=== PATIENT | male | born 1950 | race Caucasian/White ===

== ENCOUNTER → 2016-12-04 | Outpatient (CLI) | payer MEDICARE, BC ==
--- NOTE | ~2016-12-04 | ESTC ---
Cardiac Perfusion Imaging Demographics Patient Name MILENA Reynaga Gender Male Patient Number [id number] Race Visit Number [id number] Ethnicity Corporate ID Room Number Accession Number [id number] Height Date of 1950 Weight Age 66 year(s) BSA Referring Kuldip Giang MD BMI Physician Interpreting CNC Date of study 12/04/2016 Physician Morris Jonas MD Supervising /MLP Nory Garsia APRN Technologist Ordering Physician Morris Jonas MD [facility] RD[facility], RVT Stress ECG Reading Nory Garsia APRN Procedure Procedure Type: Nuclear Stress Test:Cardiolite Stress Test Procedure Start time: 12/04/2016 08:45 Indications: Chest pain. Risk Factors The patient risk factors include:obesity, former tobacco use and treated hypertension. Conclusions Summary Cardiolite SPECT images demonstrates homogenous uptake of radioactive tracer. No evidence of inducible reversible defect and no evidence of underlying fixed defect. Normal TID ratio Gated images demonstrate normal left ventricular systolic function. LVEF is 73% Stress Protocols Resting ECG Sinus bradycardia without ST or T wave changes Resting HR:48 bpm Resting BP:149/69 mmHg Pre-stress physical exam: Complained of tightness in chest while getting ready for christianity. Complains of dyspnea on exertion going up stairs Stress Protocol:Exercise Peak HR:141 bpm HR response: Appropriate Peak BP:180/100 mmHg BP response: Appropriate Predicted HR: 154 bpm HR/BP product:24304 % of predicted HR: 92 Test duration:10:15 min Reason for termination:Target heart rate Exercise effort:Good Perceived exertion:19 ECG Findings Sinus tachycardia. Arrhythmias None Symptoms Shortness of breath. Stress Interpretation HR is slow to increase to target. Walking well but complains of shortness of breath. No chest pain. Appropriate hemodynamic response to exercise. No significant ST-T wave changes with exercise. EKG portion is negative for ischemia by diagnostic criteria. The Glover Treadmill score was +10 .This corresponds to a low risk stress test. Stress supervision and interpretation provided by Kayla Cueto APRN . Imaging Results Summed scores - Summed stress score: 7 - Summed rest score: 14 - Summed difference score: -7 Stress ejection Ejection fraction:73 % EDV :112 ml ESV :30 ml Stroke volume :82 ml LV mass :127 gr Imaging Protocols Rest Stress Isotope:Tc99m Sestamibi IV Isotope: Tc99m Sestamibi IV Isotope dose:14.5 mCi Isotope dose:43.1 mCi Technique: SPECT Technique: Gated Supine SPECT Supine Scan Time:45-60 minutes post Scan Time:15-30 minutes post injection injection Medical History Admission Data Admission date: 12/04/2016 Admission Time: 06:59 Hospital Status: Outpatient. Signatures dtt: Pritesh Caceres (cardio) dtd: 12/04/16 0845 Physician Self Edit
== END | disposition disaster alternative care site (69) ==
LOC: GRAD 06:59
DX: R07.9 Chest pain, unspecified (principal); E66.9 Obesity, unspecified; I10 Essential (primary) hypertension; Z87.891 Personal history of nicotine dependence
CPT/HCPCS: A9500